=== PATIENT | male | born 1970 | race Caucasian/White ===

== ENCOUNTER 2017-09-15 12:42 | Emergency (ER) | payer OTHER, SELFPAY | END 2017-09-15 15:38 | disposition home or self-care (01) | LOC: M ED 12:42 | DX: S33.5XXA Sprain of ligaments of lumbar spine, initial encounter (principal); S23.3XXA Sprain of ligaments of thoracic spine, initial encounter; S70.02XA Contusion of left hip, initial encounter; V43.52XA Car driver injured in collision with other type car in traffic accident, initial encounter; Y92.410 Unspecified street and highway as the place of occurrence of the external cause; Z79.899 Other long term (current) drug therapy | CPT/HCPCS: 72072 ==